=== PATIENT | male | born 1985 | race Asian ===

== ENCOUNTER 2016-08-30 21:26 | Emergency (ER) | payer SELFPAY ==
[~2016-08-30] VITALS: Ht 167.6 cm; Wt 86.2 kg
[2016-08-30 22:56] LABS: microscopic required? NO
[2016-08-30 23:17] LABS: UA SPECIFIC GRAVITY <=1.005 (1.005-1.035); urine erythrocyte NEGATIVE (NEGATIVE)
[2016-08-30 23:22] LABS: BASOPHIL % 0.1 % (0-2); PLATELET COUNT 250 x10^3mcL (130-400); RED CELL DISTRIBUTION WIDTH 12.8 % (11.5-14.5)
[2016-08-30 23:29] LABS: CALCIUM 8.5 mg/dL (8.5-10.1); CARBON DIOXIDE 20.9 mmol/L (21-32); CHLORIDE SERUM 107 mmol/L (98-107); CREATININE SERUM 0.9 mg/dL (0.7-1.3); GFR1 > 60 mL/min; GLUCOSE SERUM 95 mg/dL (74-106); POTASSIUM SERUM 3.2 mmol/L (3.5-5.1); SODIUM SERUM 141 mmol/L (136-145)
[2016-08-30 23:42] LABS: FREE T4 1.06 ng/dL (0.76-1.46); FREE THYROXINE INDEX 2.2 ug/dL (1.4-4.5); T4(THYROXINE) 6.6 ug/dL (4.7-13.3)
[2016-08-30 23:49] LABS: ALKALINE PHOSPHATASE 90 U/L (46-116); ALT/SGPT 40 U/L (16-63); AST/SGOT 19 U/L (15-37); BILIRUBIN TOTAL 0.6 mg/dL (0.20-1.00); C REACTIVE PROTEIN 1.5 mg/dL (<=0.9); CK-MB 0.8 ng/mL (0-3.6); TOTAL PROTEIN, SERUM 7.2 g/dL (6.4-8.2)
[2016-08-31 00:40] LABS: T3 TOTAL 1.19 ng/mL
[2016-08-31 01:01] VITALS: BP 127/74
[2016-08-31 01:05] LABS: ERYTHROCYTE SED RATE 0 mm/hr (0-15)
== END 2016-08-31 01:01 | disposition home or self-care (01) ==
LOC: ED 21:26
PROVIDERS: Specialist
DX: K08.89 Other specified disorders of teeth and supporting structures (principal)
CPT/HCPCS: 83880; 84439; J2405; J3010; J3490; J7030; Q0092